=== PATIENT | female | born 1980 | race Asian ===

== ENCOUNTER 2019-02-11 20:15 | Outpatient (CLI) | payer OTHER | END 2019-02-11 20:16 | disposition short-term general hospital (02) | LOC: EMS 20:15 | PROVIDERS: ATTEND Surgery | DX: M54.2 Cervicalgia (principal); R07.9 Chest pain, unspecified; R51 Headache; V48.0XXA Car driver injured in noncollision transport accident in nontraffic accident, initial encounter | CPT/HCPCS: A0425; A0428 ==